=== PATIENT | male | born 1975 | race Caucasian/White ===

== ENCOUNTER 2024-01-14 01:13 | Emergency (ER) | payer BC ==
[~2024-01-14] VITALS: Ht 185.4 cm; Wt 90.7 kg
[~2024-01-14 01:13] MED LIST: ALBIPROI INH; AMIT25 PO; ARIP10; Augmentin 875-1 EACH PO; CEFU500 PO; CYCL10 PO; DIAZ5; DRON5; DULO30; HYDACE5 PO; IBUP800; LORA1 PO; MEDICAL MARJUANA; OXCA300; OXYACE5T PO; PHENY100ER PO; PRED20 PO; PROM25 PO; QUET200; SERT25; SULTRIDS PO; TRAM50 PO
[2024-01-14] MEDS ORDERED: Ketorolac Tromethamine 30mg Vial IV ONE (06:05)
[2024-01-14] MEDS ORDERED: OxyCODONE 5 mg/Acetamin 325 mg TABLET PO ONE (06:05)
[2024-01-14] MEDS ORDERED: Percocet 5-3251 EACH PO (08:18)
[2024-01-14] MEDS ORDERED: IBUP600 PO (08:18)
[2024-01-14 08:34] VITALS: BP 116/84
== END 2024-01-14 08:34 | disposition home or self-care (01) ==
LOC: ER 01:13
DX: S20.212A Contusion of left front wall of thorax, initial encounter (principal); S30.1XXA Contusion of abdominal wall, initial encounter; Z87.891 Personal history of nicotine dependence; W01.198A Fall on same level from slipping, tripping and stumbling with subsequent striking against other object, initial encounter; Y93.01 Activity, walking, marching and hiking
CPT/HCPCS: 71046; 74177; A9270; J1885; Q9967

== ENCOUNTER 2024-11-21 16:29 | Emergency (ER) | payer BC ==
[~2024-11-21] VITALS: Ht 188 cm; Wt 83.9 kg
[~2024-11-21 16:29] MED LIST changes: +IBUP600 PO; +Percocet 5-3251 EACH PO
[2024-11-21 16:33] VITALS: BP 134/54
[2024-11-21 16:57] LABS: BASOPHILS ABSOLUTE AUTO 0.06 K/mm3 (0.00-0.23); BASOPHILS PERCENT AUTO 1 % (0-2); EOSINOPHILS PERCENT AUTO 0 % (0-6); Hematocrit 41.3 % (37.0-53.0); Hemoglobin 15.1 g/dL (13.5-17.5); IMMATURE GRAN ABSOLUTE AUTO 0.03 K/mm3 (0.00-0.10); IMMATURE GRAN PERCENT AUTO 0 % (0-1); LYMPHOCYTES ABSOLUTE AUTO 2.65 K/mm3 (0.84-5.20); LYMPHOCYTES PERCENT AUTO 25 % (21-46); MONOCYTES ABSOLUTE AUTO 0.57 K/mm3 (0.16-1.47); MONOCYTES PERCENT AUTO 5 % (4-13); Mean Corpuscular HGB 32.7 pg (26.0-34.0); Mean Corpuscular HGB Conc 36.6 g/dL (31.5-36.5); Mean Corpuscular Volume 89 fL (80-100); NEUTROPHILS ABSOLUTE AUTO 7.35 K/mm3 (1.96-9.15); NEUTROPHILS PERCENT AUTO 69 % (41-73); Platelet Count 282 K/mm3 (150-400); RDW Coefficient Variation 14.8 % (11.7-14.2); RDW Standard Deviation 47.2 fL (35.1-46.3); Red Blood Cell Count 4.62 M/mm3 (4.30-5.90); White Blood Cell Count 10.66 K/mm3 (4.00-11.30)
[2024-11-21 17:26] LABS: Albumin, Blood 3.8 g/dL (3.4-5.0); Albumin/Globulin Ratio 0.8 (0.8-1.8); Bilirubin, Total 0.7 mg/dL (0.1-1.0); Bun/Creatinine Ratio 13.8 (12.0-20.0); Calcium, Blood 9.5 mg/dL (8.5-10.1); Creatinine, Blood 0.73 mg/dL (0.60-1.20); Globulin, Blood 4.9 g/dL (2.2-4.0); Potassium, Blood 4.3 mmol/L (3.5-5.5); Total Protein, Blood 8.7 g/dL (6.4-8.2)
[2024-11-21 17:53] LABS: Source, Urine Clean Catch
[2024-11-21 17:57] LABS: Appearance, Urine Clear (Clear); Bilirubin, Urine Neg (Neg); Blood, Urine Neg (Neg); Color, Urine Yellow (P-Yellow); Glucose Qualitative, Urine Neg (Neg); Ketones, Urine 2+ (Neg); Leukocyte Esterase, Urine Neg (Neg); Nitrite, Urine Neg (Neg); Protein, Urine 2+ (Neg); Urobilinogen, Urine 1+ (Normal)
[2024-11-21 18:15] LABS: Bacteria Rare /hpf; Red Blood Cells, Urine 0-2 /hpf (0-2); Squamous Epithelial Cells Not Seen /hpf (Few); White Blood Cells, Urine 0-2 /hpf (0-5)
== END 2024-11-21 19:41 | disposition left against medical advice (07) ==
LOC: ER 16:29
PROVIDERS: Physician Assistant; Student in an Organized Health Care Education/Training Program
DX: R07.89 Other chest pain (principal); Z53.21 Procedure and treatment not carried out due to patient leaving prior to being seen by health care provider
CPT/HCPCS: 71046; 80053; 81001; 84484; 85025; 93005; 93010; 99283-25

== ENCOUNTER 2025-06-15 14:55 | Inpatient (IN) | payer OTHER ==
[~2025-06-15] VITALS: Ht 188 cm; Wt 93.6 kg
[2025-06-15] MEDS ORDERED: Diazepam 5 MG / ML 2ML SYR IV ONE (15:30)
[2025-06-15] MEDS ORDERED: CeFAZolin Sodium 1,000 MG in NS 50 ML IV ONE (15:30)
[2025-06-15] MEDS ORDERED: NS 1,000 ML IV SCH ×3 (15:30→20:00)
[2025-06-15 15:58] LABS: BASOPHILS ABSOLUTE AUTO 0.07 K/mm3 (0.00-0.23); BASOPHILS PERCENT AUTO 1 % (0-2); EOSINOPHILS ABSOLUTE AUTO 0.39 K/mm3 (0.00-0.68); EOSINOPHILS PERCENT AUTO 5 % (0-6); Hematocrit 43.2 % (37.0-53.0); Hemoglobin 15.1 g/dL (13.5-17.5); IMMATURE GRAN ABSOLUTE AUTO 0.02 K/mm3 (0.00-0.10); IMMATURE GRAN PERCENT AUTO 0 % (0-1); LYMPHOCYTES ABSOLUTE AUTO 3.06 K/mm3 (0.84-5.20); LYMPHOCYTES PERCENT AUTO 36 % (21-46); MONOCYTES ABSOLUTE AUTO 0.98 K/mm3 (0.16-1.47); MONOCYTES PERCENT AUTO 12 % (4-13); Mean Corpuscular HGB Conc 35.0 g/dL (31.5-36.5); Mean Corpuscular Volume 94 fL (80-100); NEUTROPHILS ABSOLUTE AUTO 3.90 K/mm3 (1.96-9.15); NEUTROPHILS PERCENT AUTO 47 % (41-73); NRBC ABSOLUTE 0.00 K/mm3 (0.00-0.02); NRBC Auto 0.0 /100 WBC (0.0-0.2); Platelet Count 320 K/mm3 (150-400); RDW Coefficient Variation 16.8 % (11.7-14.2); RDW Standard Deviation 56.9 fL (35.1-46.3)
[2025-06-15 16:17] LABS: Alanine Aminotransfer (ALT/SGP 68.0 U/L (12-78); Albumin, Blood 3.8 g/dL (3.4-5.0); Albumin/Globulin Ratio 0.9 (0.8-1.8); Anion Gap 7.0 mmol/L (3-11); Aspartate Aminotrans (AST/SGOT 31.0 U/L (12-37); Bilirubin, Total 0.7 mg/dL (0.1-1.0); Blood Urea Nitrogen 11.0 mg/dL (8-24); CO2, Blood 28.0 mmol/L (21-32); Calcium, Blood 9.2 mg/dL (8.5-10.1); Chloride, Blood 106.0 mmol/L (98-108); Creatinine, Blood 0.78 mg/dL (0.60-1.20); Globulin, Blood 4.3 g/dL (2.2-4.0); Glucose, Blood 89.0 mg/dL (70-99); Potassium, Blood 3.4 mmol/L (3.5-5.5); Sodium, Blood 138.0 mmol/L (136-145); Total Protein, Blood 8.1 g/dL (6.4-8.2)
[2025-06-15] MEDS ORDERED: Diazepam 5 MG / ML 2ML SYR IV PRN ×3 (19:50→20:55)
[2025-06-15] MEDS ORDERED: Ondansetron HCl 2 MG / ML 2ML Vial IV PRN (19:55)
[2025-06-15 20:52] LABS: Ethanol (Alcohol), Blood, Med <3 mg/dL; Magnesium, Blood 2.0 mg/dL (1.6-2.4); Phosphorus, Blood 4.1 mg/dL (2.5-4.9)
[2025-06-15 22:57] VITALS: BP 147/97
[2025-06-16] MEDS ORDERED: CeFAZolin Sodium 1,000 MG in NS 50 ML IV SCH
[2025-06-16 03:12] VITALS: BP 124/75
[2025-06-16 04:44] LABS: BASOPHILS ABSOLUTE AUTO 0.04 K/mm3 (0.00-0.23); BASOPHILS PERCENT AUTO 1 % (0-2); EOSINOPHILS ABSOLUTE AUTO 0.13 K/mm3 (0.00-0.68); EOSINOPHILS PERCENT AUTO 2 % (0-6); Hematocrit 38.4 % (37.0-53.0); Hemoglobin 13.4 g/dL (13.5-17.5); IMMATURE GRAN ABSOLUTE AUTO 0.01 K/mm3 (0.00-0.10); IMMATURE GRAN PERCENT AUTO 0 % (0-1); LYMPHOCYTES ABSOLUTE AUTO 2.73 K/mm3 (0.84-5.20); LYMPHOCYTES PERCENT AUTO 45 % (21-46); MONOCYTES ABSOLUTE AUTO 0.57 K/mm3 (0.16-1.47); MONOCYTES PERCENT AUTO 9 % (4-13); Mean Corpuscular HGB Conc 34.9 g/dL (31.5-36.5); Mean Corpuscular Volume 93 fL (80-100); NEUTROPHILS ABSOLUTE AUTO 2.61 K/mm3 (1.96-9.15); NEUTROPHILS PERCENT AUTO 43 % (41-73); NRBC ABSOLUTE 0.00 K/mm3 (0.00-0.02); NRBC Auto 0.0 /100 WBC (0.0-0.2); Platelet Count 242 K/mm3 (150-400); RDW Coefficient Variation 16.8 % (11.7-14.2); RDW Standard Deviation 55.4 fL (35.1-46.3)
[2025-06-16 05:05] LABS: Alanine Aminotransfer (ALT/SGP 52.0 U/L (12-78); Albumin, Blood 2.7 g/dL (3.4-5.0); Albumin/Globulin Ratio 0.7 (0.8-1.8); Anion Gap 7.0 mmol/L (3-11); Aspartate Aminotrans (AST/SGOT 28.0 U/L (12-37); Bilirubin, Total 0.4 mg/dL (0.1-1.0); Blood Urea Nitrogen 9.0 mg/dL (8-24); CO2, Blood 27.0 mmol/L (21-32); Calcium, Blood 8.2 mg/dL (8.5-10.1); Chloride, Blood 109.0 mmol/L (98-108); Creatinine, Blood 0.67 mg/dL (0.60-1.20); Globulin, Blood 3.7 g/dL (2.2-4.0); Glucose, Blood 105.0 mg/dL (70-99); Potassium, Blood 3.6 mmol/L (3.5-5.5); Sodium, Blood 139.0 mmol/L (136-145); Total Protein, Blood 6.4 g/dL (6.4-8.2)
--- NOTE | 2025-06-16 06:15 | NUR ---
RECVD FROM ED AT APPROX 11PM LAST NIGHT. APPEARS CALM BUT LOUD AND HAS SOME MANNERS, SPEAKING WITH HIS THROUGH THE PHONE EVEN WHEN STAFF ARE AROUND. SAID HE HAD HALLUCINATIONS FOR THE PAST FEW DAYS BUT NOT NOW. SAID YES WHEN ASKED OF SUICIDAL THOUGHTS BUT SAID HES BEEN TAKING DRUGS FOR THAT AND WANTS FULL RESUSCITATION STILL. PROVIDED MN SNACKS, TOLERATED, VSS, SETTLED ON BED W/O ANY CONCERN AND SLEPT WELL AFTER A DOSE OF VALIUM.
[2025-06-16 07:55] VITALS: BP 123/79
[2025-06-16] MEDS ORDERED: Enoxaparin 40 MG/0.4 ML SYR SC SCH (09:00)
[2025-06-16 11:04] VITALS: BP 126/102
[2025-06-16 15:54] VITALS: BP 128/98
--- NOTE | 2025-06-16 17:01 | NUR ---
SHIFT SUMMARY PT REMAINS ALERT AND ORIENTED. PT ANXIOUS MOST OF SHIFT. PT TREMULOUS AT TIMES AND REPORTS FEELING WEAK WITH AMBULATION. MEDICATING PER EMAR AND CIWA FOR ETOH WD. BP REMAINS STABLE. HR REMAINS NSR. RIGHT ARM CONTINUES TO BE RED, BUT REDNESS HAS NOT GONE OUTSIDE THE BORDERS THAT WERE INITIALLY MARKED. AREA IS TENDER TO THE TOUCH. PT ABLE TO AMBULATE TO BATHROOM TO VOID WITH SBA. PT TOLERATING PO INTAKE. WILL CONTINUE PLAN OF CARE AND REPORT TO ONCOMING RN
[2025-06-16 19:55] VITALS: BP 130/93
--- NOTE | 2025-06-16 22:18 | NUR ---
Vicki BRAND AT BEDSIDE TO CONFIRM CODE STATUS (CONFLICTING INFO IN DAY TEAM MD NOTES). PT CONFIRMED FULL CODE STATUS. WILL HAVE DAY NURSE ADDRESS DAY TIME MD TO CLARIFY NOTE.
[2025-06-17 00:02] VITALS: BP 138/87
[2025-06-17 03:59] VITALS: BP 143/92
[2025-06-17 04:48] LABS: BASOPHILS ABSOLUTE AUTO 0.06 K/mm3 (0.00-0.23); BASOPHILS PERCENT AUTO 1 % (0-2); EOSINOPHILS ABSOLUTE AUTO 0.18 K/mm3 (0.00-0.68); EOSINOPHILS PERCENT AUTO 3 % (0-6); Hematocrit 38.8 % (37.0-53.0); Hemoglobin 13.7 g/dL (13.5-17.5); IMMATURE GRAN ABSOLUTE AUTO 0.02 K/mm3 (0.00-0.10); IMMATURE GRAN PERCENT AUTO 0 % (0-1); LYMPHOCYTES ABSOLUTE AUTO 2.65 K/mm3 (0.84-5.20); LYMPHOCYTES PERCENT AUTO 43 % (21-46); MONOCYTES ABSOLUTE AUTO 0.52 K/mm3 (0.16-1.47); MONOCYTES PERCENT AUTO 9 % (4-13); Mean Corpuscular HGB Conc 35.3 g/dL (31.5-36.5); Mean Corpuscular Volume 94 fL (80-100); NEUTROPHILS ABSOLUTE AUTO 2.71 K/mm3 (1.96-9.15); NEUTROPHILS PERCENT AUTO 44 % (41-73); NRBC ABSOLUTE 0.00 K/mm3 (0.00-0.02); NRBC Auto 0.0 /100 WBC (0.0-0.2); Platelet Count 265 K/mm3 (150-400); RDW Coefficient Variation 16.8 % (11.7-14.2); RDW Standard Deviation 55.6 fL (35.1-46.3)
[2025-06-17 05:07] LABS: Anion Gap 7.0 mmol/L (3-11); Blood Urea Nitrogen 7.0 mg/dL (8-24); CO2, Blood 29.0 mmol/L (21-32); Calcium, Blood 8.3 mg/dL (8.5-10.1); Chloride, Blood 108.0 mmol/L (98-108); Creatinine, Blood 0.7 mg/dL (0.60-1.20); Glucose, Blood 106.0 mg/dL (70-99); Potassium, Blood 3.5 mmol/L (3.5-5.5); Sodium, Blood 140.0 mmol/L (136-145)
--- NOTE | 2025-06-17 05:33 | NUR ---
SHIFT SUMMARY PT ALERT AND ORIENTED X 4. PT SLEPT MOST OF NIGHT. PRN LIBRIUM GIVEN X 1 FOR CIWA. RESPONDED WELL. NO REDNESS NOTED TO RUE, SOME SWELLING NOTED. PT DENIES PAIN. SIGNIFICANT OTHER VISITED PATIENT. PT DENIES CP/PRESSURE. PT SR WITH HR 70S. MAINTAINS 02 SATS ABOVE 90% ON ROOM AIR. VSS. BED ALARM ON. PT ABLE TO MAKE NEEDS KNOWN.
[2025-06-17 08:11] VITALS: BP 144/86
[2025-06-17] MEDS ORDERED: Polyethylene Glycol 3350 17 gm PO PRN (10:35)
[2025-06-17] MEDS ORDERED: Nystatin 100,000 Unit/ML Susp 5 ML UDC SS SCH (14:00)
[2025-06-17 14:53] VITALS: BP 141/92
--- NOTE | 2025-06-17 17:00 | NUR ---
SHIFT SUMMARY PT REMAINS ALERT AND ORIENTED. BP STABLE. TELEMETRY DISCONTINUED THIS SHIFT. O2 SATS ABOVE 90% ON RA. PT DENIES ANY PAIN TODAY. CIWA HAS BEEN 3 OR LESS ALL SHIFT. PT UP TO THE SHOWER TODAY. PLAN IS FOR DISCHARGE TOMORROW TO [facility] FOR DETOX TREATMENT. PT TEARFUL AT TIMES THIS SHIFT AND WORRIED ABOUT HIS RECOVERY. THIS RN PROVIDED THERAPEUTIC LISTENING MULTPILE TIMES THIS SHIFT. WILL CONTINUE PLAN OF CARE AND REPORT TO ONCOMING RN
--- NOTE | 2025-06-17 18:32 | NUR ---
UPDATE BED ASSIGNMENT PROVIDED ON MEDICAL FLOOR. REPORT GIVEN TO MEDICAL FLOOR RN. PT TAKEN UP VIA WC WITH ALL OF HIS BELONGINGS.
--- NOTE | 2025-06-17 18:33 | NUR ---
TRANSFER NOTE PT A&OX4. PT ARRIVED TO FLOOR BY WHEELCHAIR. TRANSFERED SELF FROM WHEELCHAIR TO BED. PT REPORTS NO PAIN/CHEST PAIN/SOB. PT ARRIVED AT 1830. GOT REPORT FROM MANAGER REVIEW. PT ORIENTED TO UNIT/CALL LIGHT/FALL PRECAUTIONS. PT SBA. PT IN BED, BED IN LOWEST POSITION, CALL LIGHT IN REACH.
[2025-06-17 20:10] VITALS: BP 138/105
[2025-06-17] MEDS ORDERED: Docusate Sodium/Senna 1 Tab PO SCH (21:00)
[2025-06-18 02:57] VITALS: BP 112/74
--- NOTE | 2025-06-18 06:24 | NUR ---
EMBEDDED SOFTWARE ENGINEER SUMMARY PT A&OX4, VSS. PT STARTED THE SHIFT OFF OPTIMISTIC ABOUT CURRENT SITUATION AND COMMITTED TO REHAB FROM DRUG USE. SHORTLY BEFORE GETTING TO BED, PT STARTED EXPERIENCING NIGHT TREMORS, ITCHINESS, ANXIETY, AGITATION, DISORIENTATION, AND VISUAL DISTURBANCES. CIWA PERFORMED. PT SCORED A 12. PREVIOUS SCORE WAS 3. VALIUM AND LIBRIUM ADMINISTERED W/ GREAT EFFECT. REPEAT CIWA SCORE WAS AGAIN A 3. 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 CHEST RISE AND RESPIRATIONS NOTED. PT WOKE UP ONCE TO USE THE RESTROOM W/O USE OF CALL LIGHT. BED ALARM ON FOR PT SAFETY AND PT REEDUCATED ON IMPORTANCE OF CALL LIGHT. PT ALSO VOICED GREAT IMPROVMEMENT IN MOOD/CONDITION DURING THAT TIME. PT HAS CONTINUED TO BE ASLEEP W/ CHEST RISE/RESPIRATIONS NOTED. RUE CONTINUES TO HAVE DIME SIZED REDNESS. HOWEVER, PT STATES ARM IS MUCH IMPROVED. BED RAILS UP X 2, BED IN LOWEST POSITION, BED WHEELS LOCKED, PERSONAL BELONGINGS AND CALL LIGHT WITHIN REACH FOR SAFETY.
[2025-06-18 07:24] VITALS: BP 131/91
[2025-06-18] MEDS ORDERED: Multivitamins 1 Tab PO SCH (09:00)
[2025-06-18] MEDS ORDERED: MULVITA PO (09:11)
[2025-06-18] MEDS ORDERED: NICO21TP TOP (09:11)
[2025-06-18] MEDS ORDERED: CEPH500 PO (09:11)
[2025-06-18] MEDS ORDERED: NYSTATIN100000 U13 MT (09:13)
[2025-06-18] MEDS ORDERED: B-1100 M2 PO (09:13)
--- NOTE | 2025-06-18 09:33 | NUR ---
DISCHARGE NOTE PT DISCHARGED TO [facility]. PICKED UP BY THE [facility]. MEDICATIONS FAXED TO [facility]. IV REMOVED. DISCHARGE EDUCATION AND INFORMATION REVIEWED AND PROVIDED TO THE PT. PERSONAL BELONGINGS RETURNED.
== END 2025-06-18 09:31 | disposition home or self-care (01) | DRG 897 ==
LOC: ER 14:55 → PCU 19:44 → MEDS 06-16 14:43 → PCU 06-16 14:43 → MEDS 06-17 18:31
PROVIDERS: Emergency Medicine; Family Medicine; Student in an Organized Health Care Education/Training Program; ADMIT Student in an Organized Health Care Education/Training Program
DX: F15.988 Other stimulant use, unspecified with other stimulant-induced disorder (principal); G40.89 Other seizures; L03.113 Cellulitis of right upper limb; F10.90 Alcohol use, unspecified, uncomplicated; Z66 Do not resuscitate; R74.02 Elevation of levels of lactic acid dehydrogenase [LDH]; E87.6 Hypokalemia; I80.8 Phlebitis and thrombophlebitis of other sites; F17.200 Nicotine dependence, unspecified, uncomplicated; F14.988 Cocaine use, unspecified with other cocaine-induced disorder; Z86.19 Personal history of other infectious and parasitic diseases
CPT/HCPCS: 36415; 70450; 80048; 80053; 80320; 83605; 83735; 84100; 85025; 93005; 93010; 93971; 94762; 96365; 96375; 99285-25; A9270; G0378; J0690; J1650; J3360; J3411; J7030

== ENCOUNTER 2025-09-25 09:37 | Emergency (ER) | payer OTHER ==
[~2025-09-25] VITALS: Ht 188 cm; Wt 90.7 kg
[~2025-09-25 09:37] MED LIST changes: +B-1100 M2 PO; +CEPH500 PO; +MULVITA PO; +NICO21TP TOP; +NYSTATIN100000 U13 MT
[2025-09-25] MEDS ORDERED: Ketorolac Tromethamine 30mg Vial IV ONE (09:55)
[2025-09-25] MEDS ORDERED: Ondansetron HCl 2 MG / ML 2ML Vial IV ONE ×2 (09:55→14:10)
[2025-09-25 10:30] LABS: BASOPHILS ABSOLUTE AUTO 0.03 K/mm3 (0.00-0.23); BASOPHILS PERCENT AUTO 1 % (0-2); EOSINOPHILS ABSOLUTE AUTO 0.00 K/mm3 (0.00-0.68); EOSINOPHILS PERCENT AUTO 0 % (0-6); Hematocrit 42.9 % (37.0-53.0); Hemoglobin 15.2 g/dL (13.5-17.5); IMMATURE GRAN ABSOLUTE AUTO 0.00 K/mm3 (0.00-0.10); IMMATURE GRAN PERCENT AUTO 0 % (0-1); LYMPHOCYTES ABSOLUTE AUTO 1.54 K/mm3 (0.84-5.20); LYMPHOCYTES PERCENT AUTO 30 % (21-46); MONOCYTES ABSOLUTE AUTO 0.44 K/mm3 (0.16-1.47); MONOCYTES PERCENT AUTO 9 % (4-13); Mean Corpuscular HGB Conc 35.4 g/dL (31.5-36.5); Mean Corpuscular Volume 93 fL (80-100); NEUTROPHILS ABSOLUTE AUTO 3.06 K/mm3 (1.96-9.15); NEUTROPHILS PERCENT AUTO 60 % (41-73); NRBC ABSOLUTE 0.00 K/mm3 (0.00-0.02); NRBC Auto 0.0 /100 WBC (0.0-0.2); Platelet Count 269 K/mm3 (150-400); RDW Coefficient Variation 12.8 % (11.7-14.2); RDW Standard Deviation 43.5 fL (35.1-46.3)
[2025-09-25 11:08] LABS: Alanine Aminotransfer (ALT/SGP 86.0 U/L (12-78); Albumin, Blood 4.0 g/dL (3.4-5.0); Albumin/Globulin Ratio 1.0 (0.8-1.8); Anion Gap 9.0 mmol/L (3-11); Aspartate Aminotrans (AST/SGOT 33.0 U/L (12-37); Bilirubin, Total 0.6 mg/dL (0.1-1.0); Blood Urea Nitrogen 13.0 mg/dL (8-24); CO2, Blood 25.0 mmol/L (21-32); Calcium, Blood 9.2 mg/dL (8.5-10.1); Chloride, Blood 106.0 mmol/L (98-108); Creatinine, Blood 0.73 mg/dL (0.60-1.20); Globulin, Blood 4.2 g/dL (2.2-4.0); Glucose, Blood 104.0 mg/dL (70-99); Potassium, Blood 4.4 mmol/L (3.5-5.5); Sodium, Blood 136.0 mmol/L (136-145); Total Protein, Blood 8.2 g/dL (6.4-8.2)
[2025-09-25 13:24] LABS: Source, Urine Voided
[2025-09-25 13:33] LABS: Bilirubin, Urine Neg (Neg); Glucose Qualitative, Urine Neg (Neg); Ketones, Urine Neg (Neg); Leukocyte Esterase, Urine Neg (Neg); Protein, Urine 1+ (Neg); Specific Gravity, Urine 1.010 (1.003-1.022); Urobilinogen, Urine NORM (Normal)
[2025-09-25] MEDS ORDERED: Morphine Sulfate 4 MG/1 ML Injection IV ONE (14:10)
[2025-09-25 14:12] LABS: Color, Urine Yellow (P-Yellow)
[2025-09-25] MEDS ORDERED: PANT40 PO (14:50)
[2025-09-25] MEDS ORDERED: ONDA4ODT MM (14:50)
[2025-09-25 15:07] VITALS: BP 125/89
== END 2025-09-25 15:16 | disposition home or self-care (01) ==
LOC: ER 09:37
PROVIDERS: Emergency Medicine
DX: R10.9 Unspecified abdominal pain (principal); R11.15 Cyclical vomiting syndrome unrelated to migraine; R19.7 Diarrhea, unspecified; R12 Heartburn; Z87.891 Personal history of nicotine dependence; Z79.899 Other long term (current) drug therapy
CPT/HCPCS: 74177; 80053; 83690; 85025; 93005; 93010; 96374-59; 96375; 96376; 99284-25; J1885; J2270; J2405; Q9967